=== PATIENT | female | born 1980 | race Two or more races ===

== ENCOUNTER 2019-05-10 17:59 | Emergency (ER) | payer OTHER ==
[~2019-05-10] VITALS: Ht 160 cm; Wt 49.4 kg
[2019-05-10] MEDS ORDERED: DICLOFENAC SODI75 MG PO (20:25)
== END 2019-05-10 20:27 | disposition home or self-care (01) ==
LOC: ER 17:59
DX: M77.8 Other enthesopathies, not elsewhere classified (principal)

== ENCOUNTER 2024-08-17 20:47 | Emergency (ER) | payer OTHER ==
[~2024-08-17] VITALS: Ht 167.6 cm; Wt 52.2 kg
[~2024-08-17 20:47] MED LIST: DICLOFENAC SODI75 MG PO
[2024-08-18] MEDS ORDERED: HYOSCYAMINE SULFATE 0.125 MG TAB.SUBL SL STA (01:13)
[2024-08-18] MEDS ORDERED: HYOSCYAMINE SULFATE 0.125 MG TAB.SUBL ONE (01:19)
[2024-08-18 01:30] LABS: MEAN CELL VOLUME 91.1 fL (80.00-100.00); MEAN CORPUSCULAR HGB CONC 32.9 g/dl (32.0-36.0); PLATELET COUNT 190 K/uL (150-450); RED BLOOD COUNT 3.95 M/uL (4.00-6.00); RED CELL DISTRIBUTION WIDTH 14.5 % (11.5-14.5)
[2024-08-18 01:36] LABS: HEMOGLOBIN 11.8 g/dL (12.0-15.00); MEAN CORPUSCULAR HEMOGLOBIN 29.8 pg (27.00-32.0)
[2024-08-18 01:58] LABS: PH,URINE 5.5 (5.0-8.0); URINE APPEARANCE Clear; URINE BILIRRUBIN Negative (NEGATIVE); URINE BLOOD Trace; URINE COLOR Yellow; URINE GLUCOSE Negative (NEGATIVE); URINE KETONE Negative (NEGATIVE); URINE LEUKOCYTE Negative; URINE NITRATE Negative; URINE PROTEIN Negative (NEGATIVE); URINE UROBILINOGEN 0.2 E.U./dl
[2024-08-18 02:02] LABS: URINE EPITHELIAL CELLS 9.3 uL (0.0-38.8); URINE RBC 8.3 uL (0.0-20.8); URINE WBC 2.9 uL (0.0-23.2)
[2024-08-18] MEDS ORDERED: LEVSIN/SL0.125 MG SL (03:37)
[2024-08-18] MEDS ORDERED: INTESTINEX680 M1 PO (03:37)
== END 2024-08-18 03:47 ==
LOC: ER 20:50
PROVIDERS: General Practice
DX: R53.81 Other malaise (principal); R10.83 Colic